=== PATIENT | male | born 1960 | race Caucasian/White ===

== ENCOUNTER 2023-05-17 12:34 | Emergency (ER) | payer OTHER ==
[~2023-05-17] VITALS: Ht 185.4 cm; Wt 102.1 kg
[~2023-05-17 12:34] MED LIST: AZIT250 PO; BUPR75 PO; CLON2 PO; HYDCHLSU PO; IRBHYD150 PO; LEVSOD100 PO; LOSA25 PO; MIRT30 PO; NAPR500 PO; RXCODGUASY PO; RXHYDGUAS PO; SERT100 PO; SERT50; [UNRECOGNIZED DRUG - REMARK]
[2023-05-17] MEDS ORDERED: DULO60 PO (12:42)
[2023-05-17 14:00] VITALS: BP 118/82
== END 2023-05-17 14:19 | disposition home or self-care (01) ==
LOC: ER 12:34
DX: F41.0 Panic disorder [episodic paroxysmal anxiety] (principal); F41.9 Anxiety disorder, unspecified; F32.A Depression, unspecified; Z88.5 Allergy status to narcotic agent; Z79.890 Hormone replacement therapy; Z79.899 Other long term (current) drug therapy
CPT/HCPCS: J2060; J7030

== ENCOUNTER 2023-05-22 09:24 | Emergency (ER) | payer OTHER ==
[~2023-05-22] VITALS: Ht 180.3 cm; Wt 81.7 kg
[~2023-05-22 09:24] MED LIST changes: +DULO60 PO
[2023-05-22 10:29] VITALS: BP 123/78
[2023-05-22] MEDS ORDERED: ALPRAZOLAM2 M1 PO (10:51)
[2023-05-22] MEDS ORDERED: Klonopin1 MG PO (11:49)
[2023-05-22] MEDS ORDERED: Seroquel Xr50 MG PO (11:49)
[2023-05-22] MEDS ORDERED: DULO60 PO (12:01)
[2023-05-22] MEDS ORDERED: CYMBALTA30 M1 PO (12:01)
== END 2023-05-22 12:17 | disposition home or self-care (01) ==
LOC: ER 09:24
DX: F41.9 Anxiety disorder, unspecified (principal); Z76.0 Encounter for issue of repeat prescription; Z88.8 Allergy status to other drugs, medicaments and biological substances; Z79.899 Other long term (current) drug therapy
CPT/HCPCS: 84443; 93005; 93010; 99282-25

== ENCOUNTER 2023-05-24 13:43 | Emergency (ER) | payer OTHER ==
[~2023-05-24] VITALS: Ht 185.4 cm; Wt 99.8 kg
[~2023-05-24 13:43] MED LIST changes: +ALPRAZOLAM2 M1 PO; +CYMBALTA30 M1 PO; +Klonopin1 MG PO; +Seroquel Xr50 MG PO
[2023-05-24 13:54] VITALS: BP 130/97
[2023-05-24] MEDS ORDERED: CLON2 PO (17:23)
[2023-05-24] MEDS ORDERED: HYDHCL25 PO (17:23)
[2023-05-24] MEDS ORDERED: Seroquel Xr150 MG PO (17:23)
== END 2023-05-24 17:30 | disposition home or self-care (01) ==
LOC: ER 13:43
DX: F41.9 Anxiety disorder, unspecified (principal); Z79.899 Other long term (current) drug therapy; Z79.890 Hormone replacement therapy
CPT/HCPCS: 99282; A9270